=== PATIENT | female | born 1950 | race Caucasian/White ===

== ENCOUNTER 2017-09-14 17:53 | Inpatient (IN) | payer OTHER, BC ==
[~2017-09-14] VITALS: Ht 167.6 cm; Wt 82.7 kg
[~2017-09-14 17:53] MED LIST: AMBIEN10 MG PO; BACTRIM,SEPT1 TABLET PO; BUPROPION XL150 MG PO; CYMBALTA30 MG PO; CYMBALTA60 MG PO; Cymbalta PO; DULOXETINE HCL30 MG PO; Ecotrin PO; FLUTICASONE PRO16 GM BOTH NARES; KEFLEX500 MG PO; LIPITOR40 MG PO; LO-DOSE ASPIRIN81 M1 PO; LOSARTAN POTASS50 MG PO; MELOXICAM15 MG PO; NAPROSYN500 MG PO; Naprosyn PO; OSTEO BI-FLEX1 EAC2 PO; Protonix PO; VITAMIN D2000 UNIT PO
[2017-09-14 18:42] LABS: HEMATOCRIT 35.6 % (36.0-46.0); MCH 31.9 PG (29.0-34.0); MCHC 36.5 G/DL (30.0-36.0); MCV 87.5 FL (83-99); PLATELET COUNT 270 K/uL (156-360); RBC DIS.WIDTH-CV 12.4 % (11.8-14.6); RBC DIS.WIDTH-SD 39.8 % (39-53); RED BLOOD COUNT 4.07 M/uL (3.80-5.20)
[2017-09-14 18:48] LABS: APPEARANCE CLEAR ((CLEAR)); BILIRUBIN NEGATIVE; BLOOD SMALL; COLOR YELLOW ((YELLOW)); GLUCOSE (STRIP) NEGATIVE; KETONES NEGATIVE; LEUKOCYTES TRACE; NITRITE NEGATIVE; PROTEIN (STRIP) NEGATIVE; SPECIFIC GRAVITY 1.011 (1.000-1.030); UROBILINOGEN 0.2 MG/DL (0.2-1.0)
[2017-09-14 18:55] LABS: CHLORIDE 104 mEq/L (99-109); POTASSIUM 4.3 mEq/L (3.7-5.4); SODIUM 142 mEq/L (136-147)
[2017-09-14 18:57] LABS: BACTERIA NONE SEEN /HPF; EPITHELIAL CELLS RARE /HPF; MUCUS NONE SEEN /LPF; RED BLOOD CELLS 0-5 /HPF (0-5); UCUL ADDED? NO; WHITE BLOOD CELLS 0-5 /HPF (0-5)
[2017-09-14 18:58] LABS: GLUCOSE 111 mg/dL (70-99)
[2017-09-14 19:00] LABS: CREATININE 2.1 mg/dL (0.6-1.3); GFR ESTIMATE (CALCULATED) 25 mL/min/
[2017-09-14 19:01] LABS: UREA NITROGEN (BUN) 24 mg/dL (9-23)
[2017-09-14] MEDS ORDERED: PRINIVIL10 MG PO (19:42)
[2017-09-14] MEDS ORDERED: ASCORBIC ACID500 M1 PO (19:43)
[2017-09-14] MEDS ORDERED: TYLENOL EXTRA500 MG PO (19:43)
[2017-09-14 20:07] LABS: MAGNESIUM 2.3 mg/dL (1.3-2.7)
[2017-09-14 20:12] LABS: PHOSPHORUS 3.9 mg/dL (2.5-4.9)
[2017-09-14 21:49] VITALS: BP 133/63
[2017-09-14 23:47] VITALS: BP 123/59
[2017-09-15 06:52] LABS: HEMATOCRIT 30.3 % (36.0-46.0); MCH 29.3 PG (29.0-34.0); MCV 88.9 FL (83-99); RBC DIS.WIDTH-CV 12.3 % (11.8-14.6); RBC DIS.WIDTH-SD 39.8 % (39-53); RED BLOOD COUNT 3.41 M/uL (3.80-5.20); WHITE BLOOD COUNT 7.3 K/uL (4.1-10.2)
[2017-09-15 07:01] LABS: ALBUMIN 3.4 G/DL (3.2-4.8); CHLORIDE 108 MEQ/L (99-109); CREATININE 2.2 MG/DL (0.6-1.3); GFR ESTIMATE (CALCULATED) 24 mL/min/; GLUCOSE 104 mg/dL (70-99); PHOSPHORUS 4.3 mg/dL (2.5-4.9); POTASSIUM 3.9 MEQ/L (3.7-5.4); SODIUM 140 MEQ/L (136-147); UREA NITROGEN (BUN) 29 mg/dL (9-23)
[2017-09-15 07:05] VITALS: BP 121/61
[2017-09-15 07:16] LABS: PLAT.SUFFICIENCY ADEQUATE
[2017-09-15 07:52] LABS: PLATELET COUNT 186 K/uL (156-360)
[2017-09-15 23:05] VITALS: BP 117/58
[2017-09-16 05:54] LABS: HEMATOCRIT 27.9 % (36.0-46.0); HEMOGLOBIN 9.1 G/DL (11.9-15.5); MCHC 32.6 G/DL (30.0-36.0); MCV 88.9 FL (83-99); PLATELET COUNT 186 K/uL (156-360); RBC DIS.WIDTH-CV 12.4 % (11.8-14.6); RBC DIS.WIDTH-SD 40.4 % (39-53); RED BLOOD COUNT 3.14 M/uL (3.80-5.20); WHITE BLOOD COUNT 6.3 K/uL (4.1-10.2)
[2017-09-16 06:26] LABS: ALBUMIN 3.2 G/DL (3.2-4.8); CHLORIDE 113 MEQ/L (99-109); GFR ESTIMATE (CALCULATED) 40 mL/min/; GLUCOSE 100 mg/dL (70-99); PHOSPHORUS 3.5 mg/dL (2.5-4.9); POTASSIUM 4.1 MEQ/L (3.7-5.4); SODIUM 144 MEQ/L (136-147); UREA NITROGEN (BUN) 18 mg/dL (9-23)
[2017-09-16 06:30] LABS: CREATININE 1.4 MG/DL (0.6-1.3)
[2017-09-16 07:10] VITALS: BP 120/64
[2017-09-16] MEDS ORDERED: CIPROFLOXACIN500 M1 PO (08:30)
== END 2017-09-16 11:50 | disposition home or self-care (01) | DRG 670 ==
LOC: EME 17:53 → EDOF 19:11 → 5EAST 19:11 → ENRESERV 19:29 → 5EAST 21:25
PROVIDERS: Internal Medicine; Urology
PROC: 0TC78ZZ Extirpation of Matter from Left Ureter, Via Natural or Artificial Opening Endoscopic (ICD-10-PCS; principal; 2017-09-15)
PROC: BT1F1ZZ Fluoroscopy of Left Kidney, Ureter and Bladder using Low Osmolar Contrast (ICD-10-PCS; principal; 2017-09-15)
PROC: 0T778DZ Dilation of Left Ureter with Intraluminal Device, Via Natural or Artificial Opening Endoscopic (ICD-10-PCS; principal; 2017-09-15)
DX: N17.9 Acute kidney failure, unspecified (principal); N13.2 Hydronephrosis with renal and ureteral calculous obstruction; N26.1 Atrophy of kidney (terminal); R31.0 Gross hematuria; I10 Essential (primary) hypertension; E78.5 Hyperlipidemia, unspecified; F32.9 Major depressive disorder, single episode, unspecified; F41.9 Anxiety disorder, unspecified; G47.00 Insomnia, unspecified; D64.9 Anemia, unspecified; Z79.82 Long term (current) use of aspirin
CPT/HCPCS: 36415; 80048; 80053; 80061; 80069; 81003; 82365 90; 82607; 83735; 84100; 84443; 85025; 85027; 87086; 87624; 99281; 99285; J0330; J0690; J1885; J2250; J2405; J3010; J7030

== ENCOUNTER → 2017-09-19 | Outpatient (CLI) | payer OTHER, BC ==
[~2017-09-19] MED LIST changes: +ASCORBIC ACID500 M1 PO; +CIPROFLOXACIN500 M1 PO; +PRINIVIL10 MG PO; +TYLENOL EXTRA500 MG PO
== END | disposition home or self-care (01) ==
LOC: RAD 18:39
DX: K76.9 Liver disease, unspecified (principal); R00.2 Palpitations; R06.02 Shortness of breath; R00.0 Tachycardia, unspecified
CPT/HCPCS: 71275